=== PATIENT | male | born 1980 | race Caucasian/White ===

== ENCOUNTER 2019-01-23 06:12 | Emergency (ER) | payer SELFPAY ==
[~2019-01-23] VITALS: Ht 172.7 cm; Wt 72.7 kg
[2019-01-23] MEDS ORDERED: ketorolac trometh inj. 60 MG/2 ML VIAL IM ONE (06:30)
[2019-01-23] MEDS ORDERED: HYDROcodone/acetaminophen 10/325mg tab PO ONE (06:30)
[2019-01-23] MEDS ORDERED: morphine 4 MG/ML inj SYRINge IM ONE (07:10)
[2019-01-23 07:14] LABS: CLARITY,URINE CLEAR (Clear); COLOR,URINE YELLOW (Yellow); GLUCOSE, URINE NEGATIVE (Neg); KETONES,URINE NEGATIVE (Neg); LEUKOCYTE ESTERASE ,URINE NEGATIVE (Neg); NITRITES, URINE NEGATIVE (Neg); OCCULT BLOOD,URINE LARGE (Neg); PROTEIN,URINE TRACE mg/dl (Neg); UROBILINOGEN,URINE 0.2 E.U/dL (0.2-1.0)
[2019-01-23 07:23] LABS: UA COLLECTION TYPE URINAL
[2019-01-23 07:25] LABS: WBC,URINE NONE SEEN /HPF (0-4)
[2019-01-23 07:26] LABS: BACTERIA,URINE NONE SEEN /HPF (Neg); CAL OXALATE CRYSTALS FEW /HPF (NEGATIVE); MUCUS STRANDS NONE SEEN /LPF (Neg); RBC,URINE 0-2 /HPF (0-2); SQUAMOUS EPITHELIAL CELL,UR NONE SEEN /LPF (FEW)
--- NOTE | 2019-01-23 08:08 | NUR ---
Pt. to CT at this time with tech via wheelchair.
--- NOTE | 2019-01-23 08:19 | NUR ---
pt returns from ct
[2019-01-23] MEDS ORDERED: IBUP-1986 PO (09:06)
[2019-01-23] MEDS ORDERED: HYDR-4353 PO (09:06)
[2019-01-23 09:16] VITALS: BP 143/60
== END 2019-01-23 09:19 | disposition home or self-care (01) ==
LOC: ER 06:13
DX: N20.1 Calculus of ureter (principal); N20.0 Calculus of kidney; N50.811 Right testicular pain; F12.90 Cannabis use, unspecified, uncomplicated; F10.99 Alcohol use, unspecified with unspecified alcohol-induced disorder; Z88.1 Allergy status to other antibiotic agents; Z79.899 Other long term (current) drug therapy; Y90.9 Presence of alcohol in blood, level not specified
CPT/HCPCS: 74176; 76870; 81001; 96372; 99284; J1885; J2270

== ENCOUNTER 2019-11-29 08:52 | Emergency (ER) | payer SELFPAY ==
[~2019-11-29] VITALS: Ht 175.3 cm; Wt 72.7 kg
[~2019-11-29 08:52] MED LIST: IBUP-1986 PO
[2019-11-29] MEDS ORDERED: LIDOcaine Viscous 15ml cup MM STA (09:19)
[2019-11-29] MEDS ORDERED: dexamethasone sod phosphate 10mg/ml inj IM STA (09:19)
[2019-11-29] MEDS ORDERED: LIDO20SO16 PO (09:29)
[2019-11-29] MEDS ORDERED: NAPR-56 PO (09:29)
[2019-11-29] MEDS ORDERED: CEPH250T PO (09:29)
[2019-11-29] MEDS ORDERED: CefTRIAXone 250MG IM Kit w/LIDOcaine IM ONE (09:30)
[2019-11-29 09:52] VITALS: BP 141/73
== END 2019-11-29 09:55 | disposition home or self-care (01) ==
LOC: ER 08:52
DX: J02.0 Streptococcal pharyngitis (principal); B95.5 Unspecified streptococcus as the cause of diseases classified elsewhere; F17.200 Nicotine dependence, unspecified, uncomplicated; F12.90 Cannabis use, unspecified, uncomplicated; Z72.89 Other problems related to lifestyle; Z88.1 Allergy status to other antibiotic agents; Z79.899 Other long term (current) drug therapy
CPT/HCPCS: 96372; 99284; J0696; J1100

== ENCOUNTER 2021-10-19 21:41 | Emergency (ER) | payer MEDICAID ==
[~2021-10-19] VITALS: Ht 175.3 cm; Wt 67.7 kg
[~2021-10-19 21:41] MED LIST changes: +LIDO20SO16 PO
[2021-10-19 21:43] VITALS: BP 121/82
[2021-10-19] MEDS ORDERED: ketorolac trometh inj. 60 MG/2 ML VIAL IM ONE (22:15)
== END 2021-10-19 23:14 | disposition home or self-care (01) ==
LOC: ER 21:42
DX: G51.0 Bell's palsy (principal); M25.511 Pain in right shoulder; M25.512 Pain in left shoulder; F12.90 Cannabis use, unspecified, uncomplicated; Z72.89 Other problems related to lifestyle; Z98.890 Other specified postprocedural states; Z88.1 Allergy status to other antibiotic agents; Z79.899 Other long term (current) drug therapy
CPT/HCPCS: 71045; 73030; 96372; 99284; J1885

== ENCOUNTER 2022-02-23 18:42 | Emergency (ER) | payer MEDICAID ==
[~2022-02-23] VITALS: Ht 175.3 cm; Wt 68.2 kg
[2022-02-23 19:22] VITALS: BP 110/68
[2022-02-23] MEDS ORDERED: AMOX-117 PO (19:46)
[2022-02-23] MEDS ORDERED: amox tr/potassium clavulanate 875/125mg TAB PO ONE (19:50)
== END 2022-02-23 20:02 | disposition home or self-care (01) ==
LOC: ER 18:43
DX: H66.92 Otitis media, unspecified, left ear (principal); F12.10 Cannabis abuse, uncomplicated; Z79.899 Other long term (current) drug therapy
CPT/HCPCS: 99283

== ENCOUNTER 2022-04-26 12:55 | Emergency (ER) | payer MEDICAID, OTHER ==
[~2022-04-26] VITALS: Ht 175.3 cm; Wt 79.0 kg
[2022-04-26 13:01] VITALS: BP 127/76
[2022-04-26] MEDS ORDERED: ibuprofen 200mg tablet PO ONE (15:00)
== END 2022-04-26 16:13 | disposition home or self-care (01) ==
LOC: ER 12:56
DX: S62.303A Unspecified fracture of third metacarpal bone, left hand, initial encounter for closed fracture (principal); F12.90 Cannabis use, unspecified, uncomplicated; Z88.1 Allergy status to other antibiotic agents; X58.XXXA Exposure to other specified factors, initial encounter; Y93.89 Activity, other specified; Y92.89 Other specified places as the place of occurrence of the external cause; Y99.8 Other external cause status
CPT/HCPCS: 29125; 73120; 99283